=== PATIENT | male | born 1990 | race Caucasian/White ===

== ENCOUNTER 2016-07-12 01:34 | Emergency (ER) | payer OTHER ==
[~2016-07-12] VITALS: Ht 172.7 cm; Wt 70.3 kg
[2016-07-12 04:30] VITALS: BP 148/86
== END 2016-07-12 04:32 | disposition home or self-care (01) ==
LOC: ER 01:37
DX: S61.212A Laceration without foreign body of right middle finger without damage to nail, initial encounter (principal); W25.XXXA Contact with sharp glass, initial encounter; Y93.89 Activity, other specified; Y92.89 Other specified places as the place of occurrence of the external cause; Y99.9 Unspecified external cause status
CPT/HCPCS: 29130; 73140; 99284; A4606; Z7610

== ENCOUNTER 2016-07-16 15:38 | Emergency (ER) | payer OTHER ==
[~2016-07-16] VITALS: Ht 172.7 cm; Wt 2.4 kg
[2016-07-16] MEDS ORDERED: IV NS 0.9% 1,000 ML ONE (16:12)
[2016-07-16] MEDS ORDERED: IV SET PRIMARY 1 EA INFUS.SET MC ONE (16:12)
[2016-07-16] MEDS ORDERED: LORAZEPAM INJ 2 MG/ML VIAL ONE (16:12)
[2016-07-16 16:18] LABS: BASOPHILS % (AUTO) 0.4 % (0.0-2.0); DIFF TOTAL % 100 %; EOSINOPHILS # (AUTO) 0.1 /CMM (0.0-0.7); EOSINOPHILS % (AUTO) 0.7 % (0.0-6.0); HEMATOCRIT 47 % (39-51); HEMOGLOBIN 15.9 g/dL (13.5-17.5); LYMPHOCYTES # (AUTO) 2.5 /CMM (0.8-4.8); MEAN CORPUSCULAR HEMOGLOBIN 32 PG (26.0-33.0); MEAN CORPUSCULAR HGB CONC 34 g/dl (31.0-36.0); MEAN CORPUSCULAR VOLUME 95 fL (80-96); MONOCYTES # (AUTO) 0.6 /CMM (0.1-1.30); MONOCYTES % (AUTO) 5.7 % (2.0-12.0); NEUTROPHILS # (AUTO) 7.4 /CMM (1.8-8.9); NEUTROPHILS % (AUTO) 69.2 % (43.0-81.0); PLATELET COUNT (AUTO) 208 /CMM (150-450); RED BLOOD CELL COUNT(AUTO) 4.95 MIL/uL (4.5-6.0); WHITE BLOOD COUNT (AUTO) 10.6 K/uL (4.3-11.0)
[2016-07-16 16:29] LABS: CALCIUM, SERUM 9.3 mg/dL (8.5-10.1); CREATININE 1.1 mg/dL (0.6-1.3); POTASSIUM 3.3 mmol/L (3.5-5.1)
[2016-07-16] MEDS ORDERED: IV NS 0.9% 1,000 ML BAG IV ONE (16:30)
[2016-07-16] MEDS ORDERED: LORAZEPAM INJ 2 MG/ML VIAL IV ONE (16:30)
[2016-07-16 16:33] LABS: INR 0.91 (0.87-1.13); PROTHROMBIN TIME 9.6 SECS (9.5-12.7)
[2016-07-16 16:35] LABS: ALBUMIN 4.7 g/dL (3.4-5.0); BILIRUBIN,DIRECT 0.3 mg/dL (0.0-0.2); INDIRECT BILIRUBIN 0.7 mg/dL (0.0-1.1); TOTAL PROTEIN, SERUM 8.2 g/dL (6.4-8.2)
[2016-07-16] MEDS ORDERED: CHLORDIAZEPOXIDE HCL 25 MG CAPSULE PO ONE ×2 (18:00→21:30)
[2016-07-16] MEDS ORDERED: CHLORDIAZEPOXIDE HCL 25 MG CAPSULE ONE ×2 (18:03→21:09)
[2016-07-16 19:11] LABS: CALCIUM, SERUM 8.7 mg/dL (8.5-10.1); CREATININE 0.8 mg/dL (0.6-1.3); POTASSIUM 3.8 mmol/L (3.5-5.1)
[2016-07-16 21:31] VITALS: BP 128/76
== END 2016-07-16 21:33 | disposition home or self-care (01) ==
LOC: ER 15:40
DX: S01.81XA Laceration without foreign body of other part of head, initial encounter (principal); F10.239 Alcohol dependence with withdrawal, unspecified; D32.9 Benign neoplasm of meninges, unspecified; G40.89 Other seizures; W22.8XXA Striking against or struck by other objects, initial encounter; Y92.89 Other specified places as the place of occurrence of the external cause; Y93.89 Activity, other specified; Y99.8 Other external cause status
CPT/HCPCS: 12013; 36415; 70450; 80048 ×2; 80076; 82962; 83690; 85025; 85730; 93005; 96361; 96374; 99285; A4606; G0481; J2060; J7030; G6040-TC; Z7610

== ENCOUNTER 2017-06-09 22:38 | Emergency (ER) | payer OTHER ==
[~2017-06-09] VITALS: Ht 172.7 cm; Wt 71.7 kg
--- NOTE | 2017-06-09 22:55 | NUR ---
To bed 8 a 27 yo male patient bibself c/o "vomiting blood" x 1 hour, no trauma. Nad noted. vss. Nondiaphoretic. gowned. comfort measures rendered.
[2017-06-09] MEDS ORDERED: ONDANSETRON HCL/PF 4 MG/2 ML VIAL ONE (22:56)
[2017-06-09] MEDS ORDERED: ONDANSETRON HCL/PF 4 MG/2 ML VIAL IVP ONE (23:00)
[2017-06-09] MEDS ORDERED: IV NS 0.9% 1,000 ML BAG IV ONE (23:00)
--- NOTE | 2017-06-09 23:00 | NUR ---
started a saline lock on the rac g18, blood drawn and sent to lab.
[2017-06-09 23:04] LABS: BASOPHILS # (AUTO) 0.2 /CMM (0.0-0.2); EOSINOPHILS # (AUTO) 0.1 /CMM (0.0-0.7); EOSINOPHILS % (AUTO) 0.5 % (0.0-6.0); HEMATOCRIT 45 % (39-51); HEMOGLOBIN 15.3 g/dL (13.5-17.5); LYMPHOCYTES # (AUTO) 2.6 /CMM (0.8-4.8); LYMPHOCYTES % (AUTO) 14.6 % (20.0-44.0); MEAN CORPUSCULAR HEMOGLOBIN 31 PG (26.0-33.0); MEAN CORPUSCULAR HGB CONC 34 g/dl (31.0-36.0); MEAN CORPUSCULAR VOLUME 93 fL (80-96); MONOCYTES # (AUTO) 0.8 /CMM (0.1-1.30); MONOCYTES % (AUTO) 4.3 % (2.0-12.0); NEUTROPHILS # (AUTO) 14.1 /CMM (1.8-8.9); NEUTROPHILS % (AUTO) 79.6 % (43.0-81.0); PLATELET COUNT (AUTO) 262 /CMM (150-450); RDW COEFFICIENT OF VARIATION 12.6 (11.5-15.0); RED BLOOD CELL COUNT(AUTO) 4.89 MIL/uL (4.5-6.0); WHITE BLOOD COUNT (AUTO) 17.8 K/uL (4.3-11.0)
--- NOTE | 2017-06-09 23:04 | NUR ---
medicated patient as ordered by Tejas Driscoll.
--- NOTE | 2017-06-09 23:48 | NUR ---
patient reports relieved from nausea/vomiting. vss.
[2017-06-09 23:59] LABS: CREATININE 1.1 mg/dL (0.6-1.3); POTASSIUM 3.8 mmol/L (3.5-5.1)
[2017-06-10 00:05] LABS: ALBUMIN 5.1 g/dL (3.4-5.0); BILIRUBIN,DIRECT 0.1 mg/dL (0.0-0.2); BILIRUBIN,TOTAL 0.7 mg/dL (0.2-1.0); TOTAL PROTEIN, SERUM 8.1 g/dL (6.4-8.2)
--- NOTE | 2017-06-10 00:23 | NUR ---
IV removed. Catheter intact and site benign. Pressure and 4x4 applied to site. No bleeding noted. Patient discharged to home in stable condition. Written and verbal after care instructions given. Patient verbalizes understanding of instruction. Patient is ambulatory with steady gait, no further complaints. Nad noted on dc.
[2017-06-10 00:24] VITALS: BP 119/67
== END 2017-06-10 00:24 | disposition home or self-care (01) ==
LOC: ER 22:40
DX: R11.2 Nausea with vomiting, unspecified (principal); R10.9 Unspecified abdominal pain
CPT/HCPCS: 36415; 80048; 80076; 83690; 85025; 96361; 96374; 99284; A4606; J2405; J7030; Z7610

== ENCOUNTER 2017-09-27 18:32 | Emergency (ER) | payer OTHER ==
[~2017-09-27] VITALS: Ht 172.7 cm; Wt 68.0 kg
[2017-09-27 19:19] VITALS: BP 130/75
--- NOTE | 2017-09-27 19:58 | NUR ---
PT LEFT FOR XRAY.
--- NOTE | 2017-09-27 20:04 | NUR ---
PT RETURNED FROM XRAY.
== END 2017-09-27 20:19 | disposition home or self-care (01) ==
LOC: ER 18:37
DX: R07.9 Chest pain, unspecified (principal); F10.10 Alcohol abuse, uncomplicated
CPT/HCPCS: 71045-TC; A4606; Z7610

== ENCOUNTER 2019-04-12 18:08 | Emergency (ER) | payer OTHER ==
[~2019-04-12] VITALS: Ht 172.7 cm; Wt 72.6 kg
--- NOTE | 2019-04-12 18:20 | NUR ---
patient BIBfriend, from home, anxious having panic attack, patient verbalized on taking cocaine this morning around 4 am. On room air, no SOB. connected to the monitor and pulse ox. will continue to monitor accordingly.
--- NOTE | 2019-04-12 18:24 | NUR ---
urine collected and sent to lab.
--- NOTE | 2019-04-12 18:40 | NUR ---
patient run away from ER, patient is high in cocaine and weed, patient states "i don't know what i am doing". Restraint patient to bed, connected to the monitor and pulse ox. Sitter at bedside.
[2019-04-12 18:58] LABS: BASOPHILS % (AUTO) 0.2 % (0.0-2.0); EOSINOPHILS % (AUTO) 0.4 % (0.0-6.0); HEMATOCRIT 42 % (39-51); HEMOGLOBIN 14.2 g/dL (13.5-17.5); LYMPHOCYTES # (AUTO) 3.1 /CMM (0.8-4.8); LYMPHOCYTES % (AUTO) 19.9 % (20.0-44.0); MEAN CORPUSCULAR HGB CONC 34 g/dl (31.0-36.0); MEAN CORPUSCULAR VOLUME 93 fL (80-96); MONOCYTES # (AUTO) 1.3 /CMM (0.1-1.30); MONOCYTES % (AUTO) 8.6 % (2.0-12.0); NEUTROPHILS % (AUTO) 70.9 % (43.0-81.0); PLATELET COUNT (AUTO) 253 /CMM (150-450); WHITE BLOOD COUNT (AUTO) 15.4 K/uL (4.3-11.0)
[2019-04-12] MEDS ORDERED: diphenhydrAMINE HCL 50 MG/ML VIAL ONE (19:00)
[2019-04-12] MEDS ORDERED: LORAZEPAM INJ 2 MG/ML VIAL IM ONE ×2 (19:00)
[2019-04-12] MEDS ORDERED: LORAZEPAM INJ 2 MG/ML VIAL ONE (19:00)
[2019-04-12] MEDS ORDERED: TDAP [DIPH/PERTUSSIS/TET] 0.5 ML VIAL IM ONE ×2 (19:00)
[2019-04-12] MEDS ORDERED: HALOPERIDOL LACTATE INJ 5 MG/ML VIAL IM ONE ×2 (19:00)
[2019-04-12] MEDS ORDERED: IV NS 0.9% 1,000 ML BAG IV ONE (19:00)
[2019-04-12] MEDS ORDERED: diphenhydrAMINE HCL 50 MG/ML VIAL IM ONE ×2 (19:00)
[2019-04-12] MEDS ORDERED: LORAZEPAM INJ 2 MG/ML VIAL IV ONE (19:00)
[2019-04-12] MEDS ORDERED: HALOPERIDOL LACTATE INJ 5 MG/ML VIAL ONE (19:00)
[2019-04-12 19:10] LABS: CALCIUM, SERUM 9.9 mg/dL (8.5-10.1); CARBON DIOXIDE 18 mmol/L (21-32); CHLORIDE 97 mmol/L (98-107); CREATININE 1.5 mg/dL (0.6-1.3); GLUCOSE 141 mg/dL (74-106); POTASSIUM 3.4 mmol/L (3.5-5.1); SODIUM SERUM 138 mmol/L (136-145); UREA NITROGEN, BLOOD 18 mg/dL (7-18)
[2019-04-12 19:16] LABS: ALANINE AMINOTRANSFERASE 18 U/L (12-78); ALBUMIN 4.8 g/dL (3.4-5.0); ALCOHOL, BLOOD < 3 mg/dL (0-0); ALKALINE PHOSPHATASE 83 U/L (46-116); ASPARTATE AMINOTRANSFERASE 14 U/L (15-37); BILIRUBIN,DIRECT 0.2 mg/dL (0.0-0.2)
[2019-04-12 19:17] LABS: APPEARANCE,URINE Clear (CLEAR); BILIRUBIN,URINE SMALL (NEGATIVE); BLOOD, URINE Negative Ery/uL (NEGATIVE); COLOR,URINE Dark (YELLOW); KETONES,URINE Negative (NEGATIVE); LEUKOCYTE ESTERASE ,URINE Negative (NEGATIVE); NITRITE, URINE Negative (NEGATIVE); PH,URINE 5.5 (5.0-8.0); PROTEIN,URINE 30 mg/dl (NEGATIVE); UGLUCOSE Negative (NEGATIVE); UROBILINOGEN,URINE 0.2 EU/dL (0.2)
[2019-04-12 19:18] LABS: ACETAMINOPHEN < 2 ug/ml (10-30); SALICYLATE < 2.8 mg/dL (2.8-20.0)
--- NOTE | 2019-04-12 19:20 | NUR ---
patient in bed in no distress, falling asleep. Will continue to monitor accordingly. Sitter at bedside.
[2019-04-12 19:26] LABS: CALCIUM OXALATE CRYSTALS,UR Moderate /HPF (None Seen); RBC,URINE 0-2 /HPF (0-2); WBC,URINE 0-2 /HPF (0-3)
[2019-04-12 19:27] LABS: BACTERIA,URINE Few /HPF (None Seen); MUCUS,URINE Many /LPF (None Seen); SQUAMOUS EPITHELIAL CELL,UR Few /HPF (None Seen)
--- NOTE | 2019-04-13 04:53 | NUR ---
Patient discharged to home in stable condition. Written and verbal after care instructions given. Patient verbalizes understanding of instruction.Patient is awake and alert to self, day, and place. PT ambulatory with a steady gait
[2019-04-13 04:54] VITALS: BP 124/82
[2019-04-13 08:06] LABS: HIV SCRN 4G wRFX Non Reactive (Non Reactive)
== END 2019-04-13 04:54 | disposition home or self-care (01) ==
LOC: ER 18:08
DX: F14.229 Cocaine dependence with intoxication, unspecified (principal); F12.229 Cannabis dependence with intoxication, unspecified; F19.10 Other psychoactive substance abuse, uncomplicated; F41.0 Panic disorder [episodic paroxysmal anxiety]; M54.9 Dorsalgia, unspecified; F10.10 Alcohol abuse, uncomplicated; Y90.0 Blood alcohol level of less than 20 mg/100 ml
CPT/HCPCS: 36415; 80048; 80076; 80305; 80307; 80329; 81001; 84484; 85025; 86706; 86803; 87340; 87389; 90471; 90715; 93005; 96372 ×2; 96374; 99284; G0480; J1200; J1630; J2060; J7030; 81000-TC

== ENCOUNTER 2019-11-24 21:07 | Emergency (ER) | payer OTHER ==
[~2019-11-24] VITALS: Ht 172.7 cm; Wt 68.0 kg
--- NOTE | 2019-11-24 21:17 | NUR ---
Pt AAOX4. Ambulatory with steady gait. C/O lt arm pain x today, admits to doing cocaine. VSS.
[2019-11-24] MEDS ORDERED: ONDANSETRON 4 MG TAB.RAPDIS SL ONE (21:30)
[2019-11-24] MEDS ORDERED: ONDANSETRON 4 MG TAB.RAPDIS ONE (21:32)
--- NOTE | 2019-11-24 22:04 | NUR ---
Patient discharged to home in stable condition. Written and verbal after care instructions given. Patient verbalizes understanding of instruction. Pt ambulated with steady gait. Denies pain.
[2019-11-24 22:06] VITALS: BP 138/78
== END 2019-11-24 22:07 | disposition home or self-care (01) ==
LOC: ER 21:08
DX: M79.602 Pain in left arm (principal); F19.10 Other psychoactive substance abuse, uncomplicated; E86.0 Dehydration
CPT/HCPCS: 93005; 99283; Q0162